=== PATIENT | female | born 2005 | race African-American/Black ===

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

== ENCOUNTER 2025-01-17 11:25 | Emergency (ER) | payer MEDICAID ==
[2025-01-17] MEDS: Fluorescein 1 MG Ophth Strip EYEBOTH ONE (12:12)
[2025-01-17 13:15] VITALS: BP 124/83; PULSE 70
== END 2025-01-17 12:15 | disposition home or self-care (01) ==
LOC: JD.ED 11:25
DX: T15.91XA Foreign body on external eye, part unspecified, right eye, initial encounter (principal); Z88.0 Allergy status to penicillin; Z88.1 Allergy status to other antibiotic agents; Z91.041 Radiographic dye allergy status; Z88.5 Allergy status to narcotic agent; Z88.8 Allergy status to other drugs, medicaments and biological substances; Z79.899 Other long term (current) drug therapy; Z86.16 Personal history of COVID-19; W44.8XXA Other foreign body entering into or through a natural orifice, initial encounter; Y93.89 Activity, other specified
CPT/HCPCS: 99283; J3490

== ENCOUNTER 2025-01-28 08:43 | Emergency (ER) | payer MEDICAID ==
[2025-01-28] MEDS ORDERED: Sodium Chloride 0.9% 10 ML Syringe FLUSH PRN (09:02)
[2025-01-28 09:44] LABS: BASOPHILS ABSOLUTE AUTO 0.0 K/mm3 (0.0-0.3); BASOPHILS PERCENT AUTO 0.5 % (0.0-1.0); EOSINOPHILS ABSOLUTE AUTO 0.1 K/mm3 (0.0-0.7); EOSINOPHILS PERCENT AUTO 2.9 % (0.0-5.0); IMMATURE GRAN ABSOLUTE AUTO 0.01 K/mm3 (0.00-0.05); IMMATURE GRAN PERCENT AUTO 0.2 % (0.0-0.4); LYMPHOCYTES ABSOLUTE AUTO 1.2 K/mm3 (2.0-8.8); LYMPHOCYTES PERCENT AUTO 29.2 % (50.0-65.0); MEAN PLATELET VOLUME 9.7 fl (9.4-12.3); MONOCYTES ABSOLUTE AUTO 0.3 K/mm3 (0.1-1.4); MONOCYTES PERCENT AUTO 6.1 % (2.0-10.0); NEUTROPHILS ABSOLUTE AUTO 2.5 K/mm3 (1.5-8.5); NEUTROPHILS PERCENT AUTO 61.1 % (35.0-45.0); NRBC ABSOLUTE 0.00 (0.00-0.03); NRBC PERCENT 0.0 % (0.0-0.2); PLATELET COUNT,PLT 256 K/mm3 (150-400); RED BLOOD CELL COUNT 4.49 M/mm3 (4.10-5.30); WHITE BLOOD CELL COUNT,WBC 4.11 K/mm3 (4.5-13.5)
[2025-01-28 10:17] LABS: A/G RATIO 1.4 (1-2); ALANINE AMINOTRANSFERASE,ALT 15.0 U/L (14-59); ASPARTATE AMNIOTRANSFERASE,AST 12.0 U/L (15-37); BILIRUBIN TOTAL 0.5 mg/dL (0.2-1.0); BLOOD UREA NITROGEN,BUN 8.0 mg/dL (7-18); CARBON DIOXIDE,CO2 26.0 mEq/L (21-32); CHLORIDE,CL 102.0 mEq/L (98-107); CREATININE 0.7 mg/dL (0.55-1.02); EST CRCL DRUG DOSING (CG) 92.85 mL/min; ESTIMATED GFR 128.0 mL/min (>60); GLUCOSE RANDOM 82.0 mg/dL (70-99); POTASSIUM,K 3.9 mEq/L (3.5-5.1); PROTEIN TOTAL,TP 6.3 g/dl (6.4-8.2); SODIUM,NA 137.0 mEq/L (136-145)
[2025-01-28 10:23] LABS: APPEARANCE,URINE SLT CLOUDY (Clear); GLUCOSE,URINE NEGATIVE (Negative); OCCULT BLOOD,URINE 3+ (Negative)
[2025-01-28] MEDS: Ondansetron 4 MG/2 ML SDV IVPUSH ONE (10:29)
[2025-01-28] MEDS: Alum Hydrox/Mag Hydrox/Simeth 30 ML, Lidocaine 2% 15 ML PO ONE (11:47)
[2025-01-28 19:59] VITALS: BP 105/59; PULSE 66
== END 2025-01-28 13:35 | disposition home or self-care (01) ==
LOC: JD.ED 08:43
DX: R10.9 Unspecified abdominal pain (principal); R07.9 Chest pain, unspecified; Z88.0 Allergy status to penicillin; Z91.041 Radiographic dye allergy status; Z88.1 Allergy status to other antibiotic agents; Z79.899 Other long term (current) drug therapy; Z90.49 Acquired absence of other specified parts of digestive tract
CPT/HCPCS: 36415; 71045; 71045-26; 74176; 74176-26; 80053; 81001; 83690; 83735; 84484; 84703; 85025; 93005; 96361; 96374; 96375; 99284-25; A9270-GY; J2270; J2405; J7030

== ENCOUNTER 2025-02-01 12:00 | Emergency (ER) | payer MEDICAID ==
[2025-02-01 12:18] VITALS: BP 125/80
[2025-02-01] MEDS ORDERED: Sodium Chloride 0.9% 10 ML Syringe FLUSH PRN (12:32)
[2025-02-01 12:55] LABS: BASOPHILS ABSOLUTE AUTO 0.0 K/mm3 (0.0-0.3); BASOPHILS PERCENT AUTO 1.2 % (0.0-1.0); EOSINOPHILS ABSOLUTE AUTO 0.2 K/mm3 (0.0-0.7); EOSINOPHILS PERCENT AUTO 5.2 % (0.0-5.0); IMMATURE GRAN ABSOLUTE AUTO 0.01 K/mm3 (0.00-0.05); IMMATURE GRAN PERCENT AUTO 0.3 % (0.0-0.4); LYMPHOCYTES ABSOLUTE AUTO 1.3 K/mm3 (2.0-8.8); LYMPHOCYTES PERCENT AUTO 37.7 % (50.0-65.0); MEAN PLATELET VOLUME 9.7 fl (9.4-12.3); MONOCYTES ABSOLUTE AUTO 0.2 K/mm3 (0.1-1.4); MONOCYTES PERCENT AUTO 6.4 % (2.0-10.0); NEUTROPHILS ABSOLUTE AUTO 1.7 K/mm3 (1.5-8.5); NEUTROPHILS PERCENT AUTO 49.2 % (35.0-45.0); NRBC ABSOLUTE 0.00 (0.00-0.03); NRBC PERCENT 0.0 % (0.0-0.2); PLATELET COUNT,PLT 256 K/mm3 (150-400); RED BLOOD CELL COUNT 4.30 M/mm3 (4.10-5.30); WHITE BLOOD CELL COUNT,WBC 3.45 K/mm3 (4.5-13.5)
[2025-02-01 12:56] LABS: APPEARANCE,URINE CLEAR (Clear); GLUCOSE,URINE NEGATIVE (Negative); OCCULT BLOOD,URINE TRACE-INTACT (Negative)
[2025-02-01 13:13] LABS: SQUAMOUS EPITHELIAL CELLS,UR 0-5 /hpf (0-5)
[2025-02-01 13:15] LABS: A/G RATIO 1.9 (1-2); ALANINE AMINOTRANSFERASE,ALT 75.0 U/L (14-59); ASPARTATE AMNIOTRANSFERASE,AST 13.0 U/L (15-37); BILIRUBIN TOTAL 0.4 mg/dL (0.2-1.0); BLOOD UREA NITROGEN,BUN 5.0 mg/dL (7-18); CARBON DIOXIDE,CO2 30.0 mEq/L (21-32); CHLORIDE,CL 105.0 mEq/L (98-107); CREATININE 0.8 mg/dL (0.55-1.02); EST CRCL DRUG DOSING (CG) 79.86 mL/min; ESTIMATED GFR 109.0 mL/min (>60); GLUCOSE RANDOM 88.0 mg/dL (70-99); POTASSIUM,K 4.1 mEq/L (3.5-5.1); PROTEIN TOTAL,TP 6.3 g/dl (6.4-8.2); SODIUM,NA 140.0 mEq/L (136-145)
[2025-02-01 14:02] VITALS: PULSE 62
== END 2025-02-01 14:00 | disposition home or self-care (01) ==
LOC: JD.ED 12:00
DX: R10.11 Right upper quadrant pain (principal); R82.90 Unspecified abnormal findings in urine; Z88.0 Allergy status to penicillin; Z88.1 Allergy status to other antibiotic agents; Z91.041 Radiographic dye allergy status; Z88.8 Allergy status to other drugs, medicaments and biological substances; Z79.899 Other long term (current) drug therapy; Z86.16 Personal history of COVID-19; Z90.49 Acquired absence of other specified parts of digestive tract
CPT/HCPCS: 36415; 80053; 81001; 83690; 84703; 85025; 96374; 99284; J2270

== ENCOUNTER 2025-02-02 11:41 | Emergency (ER) | payer MEDICAID ==
[2025-02-02] MEDS ORDERED: Sodium Chloride 0.9% 10 ML Syringe FLUSH PRN (12:12)
[2025-02-02] MEDS: Ondansetron 4 MG/2 ML SDV IVPUSH ONE (12:45)
[2025-02-02 12:46] LABS: BASOPHILS ABSOLUTE AUTO 0.0 K/mm3 (0.0-0.3); BASOPHILS PERCENT AUTO 0.8 % (0.0-1.0); EOSINOPHILS ABSOLUTE AUTO 0.2 K/mm3 (0.0-0.7); EOSINOPHILS PERCENT AUTO 4.4 % (0.0-5.0); IMMATURE GRAN ABSOLUTE AUTO 0.01 K/mm3 (0.00-0.05); IMMATURE GRAN PERCENT AUTO 0.3 % (0.0-0.4); LYMPHOCYTES ABSOLUTE AUTO 1.1 K/mm3 (2.0-8.8); LYMPHOCYTES PERCENT AUTO 27.9 % (50.0-65.0); MEAN PLATELET VOLUME 9.3 fl (9.4-12.3); MONOCYTES ABSOLUTE AUTO 0.3 K/mm3 (0.1-1.4); MONOCYTES PERCENT AUTO 6.8 % (2.0-10.0); NEUTROPHILS ABSOLUTE AUTO 2.3 K/mm3 (1.5-8.5); NEUTROPHILS PERCENT AUTO 59.8 % (35.0-45.0); NRBC ABSOLUTE 0.00 (0.00-0.03); NRBC PERCENT 0.0 % (0.0-0.2); PLATELET COUNT,PLT 258 K/mm3 (150-400); RED BLOOD CELL COUNT 4.68 M/mm3 (4.10-5.30); WHITE BLOOD CELL COUNT,WBC 3.83 K/mm3 (4.5-13.5)
[2025-02-02 13:09] LABS: A/G RATIO 1.5 (1-2); ALANINE AMINOTRANSFERASE,ALT 106.0 U/L (14-59); ASPARTATE AMNIOTRANSFERASE,AST 36.0 U/L (15-37); BILIRUBIN TOTAL 0.7 mg/dL (0.2-1.0); BLOOD UREA NITROGEN,BUN 8.0 mg/dL (7-18); CARBON DIOXIDE,CO2 26.0 mEq/L (21-32); CHLORIDE,CL 102.0 mEq/L (98-107); CREATININE 0.8 mg/dL (0.55-1.02); EST CRCL DRUG DOSING (CG) 76.94 mL/min; ESTIMATED GFR 109.0 mL/min (>60); GLUCOSE RANDOM 73.0 mg/dL (70-99); POTASSIUM,K 4.0 mEq/L (3.5-5.1); PROTEIN TOTAL,TP 6.7 g/dl (6.4-8.2); SODIUM,NA 138.0 mEq/L (136-145)
[2025-02-02] MEDS: Alum Hydrox/Mag Hydrox/Simeth 30 ML, Lidocaine 2% 15 ML PO ONE (13:35)
[2025-02-02] MEDS: Sucralfate Suspension 1 GM/10 ML Cup PO ONE (14:43)
[2025-02-02 15:00] VITALS: BP 109/69; PULSE 88
== END 2025-02-02 15:00 | disposition home or self-care (01) ==
LOC: JD.ED 11:41
DX: K21.9 Gastro-esophageal reflux disease without esophagitis (principal); K59.01 Slow transit constipation; Z79.899 Other long term (current) drug therapy; Z88.8 Allergy status to other drugs, medicaments and biological substances; Z88.1 Allergy status to other antibiotic agents; Z91.041 Radiographic dye allergy status; Z86.16 Personal history of COVID-19; Z90.49 Acquired absence of other specified parts of digestive tract
CPT/HCPCS: 36415; 74019; 80053; 85025; 86140; 96361; 96374; 99284; A9270; J2405; J3490; J7030

== ENCOUNTER 2025-03-24 14:39 | Emergency (ER) | payer SELFPAY ==
[2025-03-24] MEDS ORDERED: Sodium Chloride 0.9% 10 ML Syringe FLUSH PRN (15:37)
[2025-03-24 16:03] LABS: BASOPHILS ABSOLUTE AUTO 0.0 K/mm3 (0.0-0.3); BASOPHILS PERCENT AUTO 0.7 % (0.0-1.0); EOSINOPHILS ABSOLUTE AUTO 0.1 K/mm3 (0.0-0.7); EOSINOPHILS PERCENT AUTO 1.6 % (0.0-5.0); IMMATURE GRAN ABSOLUTE AUTO 0.00 K/mm3 (0.00-0.05); IMMATURE GRAN PERCENT AUTO 0.0 % (0.0-0.4); LYMPHOCYTES ABSOLUTE AUTO 1.4 K/mm3 (2.0-8.8); LYMPHOCYTES PERCENT AUTO 31.9 % (50.0-65.0); MEAN PLATELET VOLUME 9.5 fl (9.4-12.3); MONOCYTES ABSOLUTE AUTO 0.3 K/mm3 (0.1-1.4); MONOCYTES PERCENT AUTO 6.2 % (2.0-10.0); NEUTROPHILS ABSOLUTE AUTO 2.7 K/mm3 (1.5-8.5); NEUTROPHILS PERCENT AUTO 59.6 % (35.0-45.0); NRBC ABSOLUTE 0.00 (0.00-0.03); NRBC PERCENT 0.0 % (0.0-0.2); PLATELET COUNT,PLT 250 K/mm3 (150-400); RED BLOOD CELL COUNT 4.22 M/mm3 (4.10-5.30); WHITE BLOOD CELL COUNT,WBC 4.51 K/mm3 (4.5-13.5)
[2025-03-24 16:21] LABS: APPEARANCE,URINE CLOUDY (Clear); GLUCOSE,URINE NEGATIVE (Negative); OCCULT BLOOD,URINE 3+ (Negative)
[2025-03-24 16:27] LABS: A/G RATIO 1.3 (1-2); BILIRUBIN TOTAL 0.3 mg/dL (0.2-1.0); BLOOD UREA NITROGEN,BUN 7.0 mg/dL (7-18); CARBON DIOXIDE,CO2 27.0 mEq/L (21-32); CHLORIDE,CL 107.0 mEq/L (98-107); CREATININE 0.6 mg/dL (0.55-1.02); EST CRCL DRUG DOSING (CG) 107.13 mL/min; ESTIMATED GFR 133.0 mL/min (>60); GLUCOSE RANDOM 92.0 mg/dL (70-99); POTASSIUM,K 3.9 mEq/L (3.5-5.1); PROTEIN TOTAL,TP 6.3 g/dl (6.4-8.2); SODIUM,NA 142.0 mEq/L (136-145)
[2025-03-24 16:38] LABS: SQUAMOUS EPITHELIAL CELLS,UR 0-5 /hpf (0-5)
[2025-03-24 16:51] LABS: ALANINE AMINOTRANSFERASE,ALT 10.0 U/L (14-59); ASPARTATE AMNIOTRANSFERASE,AST 12.0 U/L (15-37)
[2025-03-24] MEDS: Sodium Chloride 0.9% 10 ML Syringe FLUSH ONE (16:59)
[2025-03-24] MEDS: Iopamidol 612 MG/ML 100 ML Bottle IVPUSH ONE (16:59)
[2025-03-24 18:24] VITALS: BP 104/75; PULSE 78
== END 2025-03-24 18:15 | disposition home or self-care (01) ==
LOC: JD.ED 14:39
DX: M54.50 Low back pain, unspecified (principal); Z88.1 Allergy status to other antibiotic agents; Z88.8 Allergy status to other drugs, medicaments and biological substances
CPT/HCPCS: 36415; 74177; 80053; 81001; 84703; 85025; 87086; 96360; 99284; J7030; Q9967

== ENCOUNTER 2025-04-07 11:45 | Emergency (ER) | payer SELFPAY ==
[2025-04-07 14:34] VITALS: BP 105/71; PULSE 70
== END 2025-04-07 14:13 | disposition home or self-care (01) ==
LOC: JD.ED 11:45
DX: R07.89 Other chest pain (principal); Z88.0 Allergy status to penicillin; Z91.041 Radiographic dye allergy status; Z88.8 Allergy status to other drugs, medicaments and biological substances; Z79.899 Other long term (current) drug therapy; Z86.16 Personal history of COVID-19; Z90.49 Acquired absence of other specified parts of digestive tract
CPT/HCPCS: 71045; 71045-26; 99284